=== PATIENT | female | born 1960 ===

== ENCOUNTER 2022-03-23 10:24 | Inpatient (IN) ==
[2022-03-24] MEDS: Magnesium Hydroxide LIQ 30 ML UDC PO PRN (16:15)
[2022-03-24] MEDS: Heparin 5000 UNITS/ML 1 mL VIAL SUBCUT SCH (21:35)
[2022-03-25 07:08] LABS: Hematocrit 27 % (35-47); Red Blood Count 3.83 10^6 /uL (3.70-4.87); White Blood Count 7.2 10^3/uL (3.5-10.8)
[2022-03-25 07:47] LABS: Albumin 3.5 g/dL (3.2-5.2); Albumin/Globulin Ratio 1.5 (1-3); Calcium 9.2 mg/dL (8.6-10.3); Globulin 2.4 g/dL (2-4); Potassium 4.7 mmol/L (3.5-5.0); Total Bilirubin 0.3 mg/dL (0.2-1.0); Total Protein 5.9 g/dL (6.4-8.9); eGFR CKD-EPI 105.1 (>60)
[2022-03-25 08:28] LABS: ABS Lymphocytes 0.5 10^3/ul (1.0-4.8); ABS Monocytes 0.3 10^3/ul (0-0.8); ABS Neutrophils 6.4 10^3/ul (1.5-7.7); Eosinophil % 0.1 %; Lymphocyte % 7.6 %; Mean Corpuscular HGB Conc 33 g/dL (31-36); Mean Corpuscular Hemoglobin 23 pg (27-31); Mean Corpuscular Volume 71 fL (80-97); Mean Platelet Volume 6.1 fL (7.4-10.4); Nucleated Red Blood Cells % 0.1; Platelet Count 298 10^3/uL (150-450); Red Cell Distribution Width 18 % (10-15)
[2022-03-25] MEDS: Multivitamins/Minerals TAB PO SCH (12:50)
[2022-03-25] MEDS: Cholecalciferol (VIT D3) 1,000 unit TAB PO SCH (12:51)
[2022-03-25] MEDS: Heparin 5000 UNITS/ML 1 mL VIAL SUBCUT SCH ×2 (12:52→20:28)
[2022-03-26] MEDS: Cholecalciferol (VIT D3) 1,000 unit TAB PO SCH (10:13)
[2022-03-26] MEDS: Multivitamins/Minerals TAB PO SCH (10:13)
[2022-03-26] MEDS: Heparin 5000 UNITS/ML 1 mL VIAL SUBCUT SCH ×2 (10:13→20:20)
[2022-03-27] MEDS: Heparin 5000 UNITS/ML 1 mL VIAL SUBCUT SCH ×2 (10:18→21:12)
[2022-03-27] MEDS: Multivitamins/Minerals TAB PO SCH (10:18)
[2022-03-27] MEDS: Cholecalciferol (VIT D3) 1,000 unit TAB PO SCH (10:18)
[2022-03-27] MEDS: Magnesium Hydroxide LIQ 30 ML UDC PO PRN (11:13)
[2022-03-28] MEDS: Heparin 5000 UNITS/ML 1 mL VIAL SUBCUT SCH ×2 (08:39→22:16)
[2022-03-28] MEDS: Multivitamins/Minerals TAB PO SCH (08:39)
[2022-03-28] MEDS: Cholecalciferol (VIT D3) 1,000 unit TAB PO SCH (12:07)
[2022-03-29] MEDS: Cholecalciferol (VIT D3) 1,000 unit TAB PO SCH (10:42)
[2022-03-29] MEDS: Multivitamins/Minerals TAB PO SCH (10:45)
[2022-03-29] MEDS: Heparin 5000 UNITS/ML 1 mL VIAL SUBCUT SCH ×2 (10:46→21:46)
[2022-03-30] MEDS: Magnesium Hydroxide LIQ 30 ML UDC PO PRN (05:20)
[2022-03-30] MEDS: Heparin 5000 UNITS/ML 1 mL VIAL SUBCUT SCH ×2 (09:00→23:07)
[2022-03-30] MEDS: Cholecalciferol (VIT D3) 1,000 unit TAB PO SCH (09:00)
[2022-03-30] MEDS: Multivitamins/Minerals TAB PO SCH (09:00)
[2022-03-31 07:40] LABS: ABS Lymphocytes 0.4 10^3/ul (1.0-4.8); ABS Monocytes 0.3 10^3/ul (0-0.8); ABS Neutrophils 4.2 10^3/ul (1.5-7.7); Eosinophil % 0.4 %; Hematocrit 27 % (35-47); Hemoglobin 8.9 g/dL (12.0-16.0); Lymphocyte % 8.5 %; Mean Corpuscular HGB Conc 33 g/dL (31-36); Mean Corpuscular Hemoglobin 24 pg (27-31); Mean Corpuscular Volume 71 fL (80-97); Nucleated Red Blood Cells % 0.1; Platelet Count 250 10^3/uL (150-450); Red Blood Count 3.81 10^6 /uL (3.70-4.87); Red Cell Distribution Width 19 % (10-15)
[2022-03-31 08:30] LABS: Albumin 3.7 g/dL (3.2-5.2); Albumin/Globulin Ratio 1.4 (1-3); Calcium 9.5 mg/dL (8.6-10.3); Globulin 2.6 g/dL (2-4); Total Bilirubin 0.5 mg/dL (0.2-1.0); Total Protein 6.3 g/dL (6.4-8.9); eGFR CKD-EPI 103.8 (>60)
[2022-03-31] MEDS: Senna TAB 8.6 mg TAB PO PRN (08:48)
[2022-03-31] MEDS: Cholecalciferol (VIT D3) 1,000 unit TAB PO SCH (08:52)
[2022-03-31] MEDS: Heparin 5000 UNITS/ML 1 mL VIAL SUBCUT SCH ×2 (08:53→20:08)
[2022-03-31] MEDS: Multivitamins/Minerals TAB PO SCH (08:53)
[2022-03-31] MEDS: Magnesium Hydroxide LIQ 30 ML UDC PO PRN (15:03)
[2022-03-31] MEDS ORDERED: Morphine ORAL.SOLN 10 mg 2 mg/ml UDC 5 ml (10 mg) PO PRN (18:47)
[2022-04-01] MEDS: Heparin 5000 UNITS/ML 1 mL VIAL SUBCUT SCH ×2 (11:11→21:02)
[2022-04-01] MEDS: Cholecalciferol (VIT D3) 1,000 unit TAB PO SCH (11:11)
[2022-04-01] MEDS: Multivitamins/Minerals TAB PO SCH (11:12)
[2022-04-01] MEDS ORDERED: Morphine ORAL.SOLN 10 mg 2 mg/ml UDC 5 ml (10 mg) PO PRN (11:49)
[2022-04-02] MEDS: Cholecalciferol (VIT D3) 1,000 unit TAB PO SCH (11:10)
[2022-04-02] MEDS: Heparin 5000 UNITS/ML 1 mL VIAL SUBCUT SCH ×2 (11:10→21:35)
[2022-04-02] MEDS: Multivitamins/Minerals TAB PO SCH (11:10)
[2022-04-03] MEDS: Heparin 5000 UNITS/ML 1 mL VIAL SUBCUT SCH ×2 (09:00→21:00)
[2022-04-03] MEDS: Cholecalciferol (VIT D3) 1,000 unit TAB PO SCH (19:12)
[2022-04-03] MEDS: Multivitamins/Minerals TAB PO SCH (19:12)
[2022-04-03] MEDS: Magnesium Hydroxide LIQ 30 ML UDC PO PRN (22:35)
[2022-04-04] MEDS: Cholecalciferol (VIT D3) 1,000 unit TAB PO SCH (07:26)
[2022-04-04] MEDS: Multivitamins/Minerals TAB PO SCH (09:48)
[2022-04-04] MEDS: Heparin 5000 UNITS/ML 1 mL VIAL SUBCUT SCH ×2 (09:48→21:15)
[2022-04-05] MEDS: Cholecalciferol (VIT D3) 1,000 unit TAB PO SCH (08:47)
[2022-04-05] MEDS: Senna TAB 8.6 mg TAB PO PRN (08:47)
[2022-04-05] MEDS: Heparin 5000 UNITS/ML 1 mL VIAL SUBCUT SCH ×2 (11:42→21:28)
[2022-04-05] MEDS: Multivitamins/Minerals TAB PO SCH (11:42)
[2022-04-05] MEDS: Magnesium Hydroxide LIQ 30 ML UDC PO PRN (15:54)
[2022-04-05] MEDS: oxyCODONE SR 15 mg TAB PO SCH (21:27)
[2022-04-06] MEDS: Senna TAB 8.6 mg TAB PO PRN (10:29)
[2022-04-06] MEDS: Multivitamins/Minerals TAB PO SCH (10:29)
[2022-04-06] MEDS: Cholecalciferol (VIT D3) 1,000 unit TAB PO SCH (10:32)
[2022-04-06] MEDS: Heparin 5000 UNITS/ML 1 mL VIAL SUBCUT SCH ×2 (10:33→21:54)
[2022-04-06] MEDS: oxyCODONE SR 15 mg TAB PO SCH ×2 (10:33→21:55)
[2022-04-06] MEDS: Magnesium Hydroxide LIQ 30 ML UDC PO PRN (14:46)
[2022-04-07] MEDS: Heparin 5000 UNITS/ML 1 mL VIAL SUBCUT SCH ×2 (09:15→21:42)
[2022-04-07 10:43] LABS: ABS Lymphocytes 0.3 10^3/ul (1.0-4.8); ABS Monocytes 0.3 10^3/ul (0-0.8); ABS Neutrophils 2.4 10^3/ul (1.5-7.7); Eosinophil % 0.7 %; Hematocrit 25 % (35-47); Hemoglobin 8.1 g/dL (12.0-16.0); Lymphocyte % 11.3 %; Mean Corpuscular HGB Conc 33 g/dL (31-36); Mean Corpuscular Hemoglobin 23 pg (27-31); Mean Corpuscular Volume 70 fL (80-97); Mean Platelet Volume 5.9 fL (7.4-10.4); Platelet Count 210 10^3/uL (150-450); Red Cell Distribution Width 19 % (10-15); White Blood Count 3.1 10^3/uL (3.5-10.8)
[2022-04-07 11:10] LABS: Albumin 3.5 g/dL (3.2-5.2); Albumin/Globulin Ratio 1.3 (1-3); Calcium 8.9 mg/dL (8.6-10.3); Globulin 2.6 g/dL (2-4); Total Bilirubin 0.3 mg/dL (0.2-1.0); Total Protein 6.1 g/dL (6.4-8.9); eGFR CKD-EPI 99.6 (>60)
[2022-04-07 12:37] LABS: Corrected Retic Count 1.1 % (0.5-1.5); Hematocrit for Retic CNT 25 % (35-47); Immature Retic Fraction 0.47; RBC Retic Count 3.49 10^6/uL (3.70-4.87)
[2022-04-07 13:03] LABS: Ferritin 42.6 ng/mL (11-307)
[2022-04-07 13:06] LABS: Folate 9.67 ng/mL (5.90-24.80)
[2022-04-07] MEDS: Cholecalciferol (VIT D3) 1,000 unit TAB PO SCH (13:21)
[2022-04-07] MEDS: Multivitamins/Minerals TAB PO SCH (13:21)
[2022-04-07] MEDS: Senna TAB 8.6 mg TAB PO PRN (14:27)
[2022-04-07] MEDS ORDERED: Lactulose 30 ml UDC PO ONE (17:00)
[2022-04-08] MEDS: Cholecalciferol (VIT D3) 1,000 unit TAB PO SCH (08:03)
[2022-04-08] MEDS: Multivitamins/Minerals TAB PO SCH (08:07)
[2022-04-08] MEDS: Heparin 5000 UNITS/ML 1 mL VIAL SUBCUT SCH ×2 (08:07→21:09)
[2022-04-09] MEDS: Senna TAB 8.6 mg TAB PO PRN (08:48)
[2022-04-09] MEDS: Heparin 5000 UNITS/ML 1 mL VIAL SUBCUT SCH ×2 (09:27→20:07)
[2022-04-09] MEDS: Multivitamins/Minerals TAB PO SCH (09:27)
[2022-04-09] MEDS: Magnesium Hydroxide LIQ 30 ML UDC PO PRN (09:35)
[2022-04-09] MEDS: Cholecalciferol (VIT D3) 1,000 unit TAB PO SCH (15:25)
[2022-04-10 06:32] LABS: ABS Lymphocytes 0.4 10^3/ul (1.0-4.8); ABS Monocytes 0.3 10^3/ul (0-0.8); ABS Neutrophils 2.1 10^3/ul (1.5-7.7); Eosinophil % 0.9 %; Hematocrit 24 % (35-47); Hemoglobin 7.8 g/dL (12.0-16.0); Mean Corpuscular HGB Conc 33 g/dL (31-36); Mean Corpuscular Hemoglobin 23 pg (27-31); Mean Corpuscular Volume 70 fL (80-97); Mean Platelet Volume 5.8 fL (7.4-10.4); Platelet Count 192 10^3/uL (150-450); Red Blood Count 3.39 10^6 /uL (3.70-4.87); Red Cell Distribution Width 18 % (10-15); White Blood Count 2.8 10^3/uL (3.5-10.8)
[2022-04-10] MEDS: Cholecalciferol (VIT D3) 1,000 unit TAB PO SCH (14:27)
[2022-04-10] MEDS: Multivitamins/Minerals TAB PO SCH (14:28)
[2022-04-10] MEDS: Heparin 5000 UNITS/ML 1 mL VIAL SUBCUT SCH ×2 (14:28→21:01)
[2022-04-11] MEDS: Cholecalciferol (VIT D3) 1,000 unit TAB PO SCH (07:37)
[2022-04-11] MEDS ORDERED: oxyCODONE/Acetamin 5/325 mg TAB PO ONE (07:45)
[2022-04-11] MEDS: Heparin 5000 UNITS/ML 1 mL VIAL SUBCUT SCH ×2 (14:41→21:22)
[2022-04-11] MEDS: Multivitamins/Minerals TAB PO SCH (14:41)
[2022-04-11] MEDS: oxyCODONE/Acetamin 5/325 mg TAB PO SCH (22:16)
[2022-04-12 07:35] LABS: ABS Lymphocytes 0.4 10^3/ul (1.0-4.8); ABS Monocytes 0.3 10^3/ul (0-0.8); ABS Neutrophils 1.9 10^3/ul (1.5-7.7); Eosinophil % 1.1 %; Hematocrit 24 % (35-47); Hemoglobin 7.9 g/dL (12.0-16.0); Lymphocyte % 16.9 %; Mean Corpuscular HGB Conc 33 g/dL (31-36); Mean Corpuscular Hemoglobin 23 pg (27-31); Mean Corpuscular Volume 70 fL (80-97); Mean Platelet Volume 6.2 fL (7.4-10.4); Platelet Count 206 10^3/uL (150-450); Red Blood Count 3.39 10^6 /uL (3.70-4.87); Red Cell Distribution Width 18 % (10-15); White Blood Count 2.6 10^3/uL (3.5-10.8)
[2022-04-12] MEDS: Heparin 5000 UNITS/ML 1 mL VIAL SUBCUT SCH ×2 (09:10→23:27)
[2022-04-12] MEDS: Cholecalciferol (VIT D3) 1,000 unit TAB PO SCH (09:10)
[2022-04-12] MEDS: Multivitamins/Minerals TAB PO SCH (09:11)
[2022-04-12] MEDS: Senna TAB 8.6 mg TAB PO PRN (15:11)
[2022-04-12] MEDS: oxyCODONE/Acetamin 5/325 mg TAB PO SCH ×2 (15:57→23:29)
[2022-04-12] MEDS ORDERED: oxyCODONE/Acetamin 5/325 mg TAB PO PRN (21:03)
[2022-04-13] MEDS: oxyCODONE/Acetamin 5/325 mg TAB PO PRN ×4 (00:44→22:57)
[2022-04-13] MEDS: Cholecalciferol (VIT D3) 1,000 unit TAB PO SCH (09:05)
[2022-04-13] MEDS: Heparin 5000 UNITS/ML 1 mL VIAL SUBCUT SCH ×2 (14:40→21:39)
[2022-04-13] MEDS: Multivitamins/Minerals TAB PO SCH (14:41)
[2022-04-14] MEDS: Senna TAB 8.6 mg TAB PO PRN (00:21)
[2022-04-14] MEDS: oxyCODONE/Acetamin 5/325 mg TAB PO PRN ×2 (04:41→12:36)
[2022-04-14 06:33] LABS: ABS Lymphocytes 0.4 10^3/ul (1.0-4.8); ABS Monocytes 0.3 10^3/ul (0-0.8); ABS Neutrophils 1.7 10^3/ul (1.5-7.7); Eosinophil % 1.3 %; Hematocrit 24 % (35-47); Hemoglobin 7.6 g/dL (12.0-16.0); Lymphocyte % 17.5 %; Mean Corpuscular HGB Conc 32 g/dL (31-36); Mean Corpuscular Hemoglobin 23 pg (27-31); Mean Corpuscular Volume 70 fL (80-97); Mean Platelet Volume 6.1 fL (7.4-10.4); Platelet Count 196 10^3/uL (150-450); Red Cell Distribution Width 18 % (10-15); White Blood Count 2.5 10^3/uL (3.5-10.8)
[2022-04-14 07:13] LABS: Albumin 3.2 g/dL (3.2-5.2); Albumin/Globulin Ratio 1.4 (1-3); Calcium 8.9 mg/dL (8.6-10.3); Globulin 2.3 g/dL (2-4); Potassium 4.1 mmol/L (3.5-5.0); Total Bilirubin 0.3 mg/dL (0.2-1.0); Total Protein 5.5 g/dL (6.4-8.9); eGFR CKD-EPI 103.8 (>60)
[2022-04-14] MEDS: Cholecalciferol (VIT D3) 1,000 unit TAB PO SCH (09:11)
[2022-04-14] MEDS: Heparin 5000 UNITS/ML 1 mL VIAL SUBCUT SCH ×2 (12:40→23:00)
[2022-04-14] MEDS: Multivitamins/Minerals TAB PO SCH (12:40)
[2022-04-14] MEDS ORDERED: oxyCODONE/Acetamin 5/325 mg TAB PO SCH (21:00)
[2022-04-15] MEDS: Senna TAB 8.6 mg TAB PO PRN (08:44)
[2022-04-15] MEDS: Heparin 5000 UNITS/ML 1 mL VIAL SUBCUT SCH ×2 (09:09→21:34)
[2022-04-15] MEDS: Multivitamins/Minerals TAB PO SCH (09:10)
[2022-04-15] MEDS: Cholecalciferol (VIT D3) 1,000 unit TAB PO SCH (10:59)
[2022-04-15] MEDS: Magnesium Hydroxide LIQ 30 ML UDC PO PRN (15:21)
[2022-04-15] MEDS: oxyCODONE/Acetamin 5/325 mg TAB PO SCH ×2 (22:52→23:08)
[2022-04-16] MEDS: Cholecalciferol (VIT D3) 1,000 unit TAB PO SCH (09:44)
[2022-04-16] MEDS: Heparin 5000 UNITS/ML 1 mL VIAL SUBCUT SCH ×2 (09:45→20:23)
[2022-04-16] MEDS: Multivitamins/Minerals TAB PO SCH (09:46)
[2022-04-16] MEDS: Senna TAB 8.6 mg TAB PO PRN (09:48)
[2022-04-16] MEDS ORDERED: Lactulose 30 ml UDC PO ONE (18:00)
[2022-04-16] MEDS: oxyCODONE/Acetamin 5/325 mg TAB PO SCH (21:46)
[2022-04-17 06:52] LABS: ABS Lymphocytes 0.5 10^3/ul (1.0-4.8); ABS Monocytes 0.3 10^3/ul (0-0.8); ABS Neutrophils 2.5 10^3/ul (1.5-7.7); Eosinophil % 0.4 %; Hematocrit 26 % (35-47); Hemoglobin 8.8 g/dL (12.0-16.0); Lymphocyte % 15.4 %; Mean Corpuscular HGB Conc 33 g/dL (31-36); Mean Corpuscular Hemoglobin 23 pg (27-31); Mean Corpuscular Volume 69 fL (80-97); Mean Platelet Volume 6.2 fL (7.4-10.4); Platelet Count 233 10^3/uL (150-450); Red Blood Count 3.81 10^6 /uL (3.70-4.87); Red Cell Distribution Width 18 % (10-15); White Blood Count 3.3 10^3/uL (3.5-10.8)
[2022-04-17 06:53] LABS: Anisocytosis 1+; Microcytosis 3+
[2022-04-17] MEDS: Cholecalciferol (VIT D3) 1,000 unit TAB PO SCH (09:35)
[2022-04-17] MEDS ORDERED: oxyCODONE/Acetamin 5/325 mg TAB PO ONE ×2 (11:45→16:59)
[2022-04-17] MEDS: Heparin 5000 UNITS/ML 1 mL VIAL SUBCUT SCH ×2 (13:25→22:07)
[2022-04-17] MEDS: Multivitamins/Minerals TAB PO SCH (13:25)
[2022-04-17] MEDS: Iron Sucrose 200 MG in NS 0.9% 100 ml BAG 100 ML IVPB SCH (18:10)
[2022-04-17] MEDS: oxyCODONE/Acetamin 5/325 mg TAB PO SCH (22:32)
[2022-04-18] MEDS: Cholecalciferol (VIT D3) 1,000 unit TAB PO SCH (08:25)
[2022-04-18] MEDS: Heparin 5000 UNITS/ML 1 mL VIAL SUBCUT SCH ×2 (08:27→21:25)
[2022-04-18] MEDS: Multivitamins/Minerals TAB PO SCH (08:28)
[2022-04-18] MEDS: Senna TAB 8.6 mg TAB PO PRN (13:13)
[2022-04-18] MEDS: oxyCODONE/Acetamin 5/325 mg TAB PO SCH ×2 (16:44→21:26)
[2022-04-18] MEDS ORDERED: oxyCODONE/Acetamin 5/325 mg TAB PO ONE (16:50)
[2022-04-18 16:54] VITALS: BP 154/84
[2022-04-19] MEDS: Cholecalciferol (VIT D3) 1,000 unit TAB PO SCH (08:08)
[2022-04-19] MEDS: Heparin 5000 UNITS/ML 1 mL VIAL SUBCUT SCH (08:11)
[2022-04-19] MEDS: Multivitamins/Minerals TAB PO SCH (08:12)
[2022-04-19] MEDS: Iron Sucrose 200 MG in NS 0.9% 100 ml BAG 100 ML IVPB SCH ×2 (12:34→13:26)
[2022-04-19 13:46] LABS: ABS Lymphocytes 0.6 10^3/ul (1.0-4.8); ABS Monocytes 0.3 10^3/ul (0-0.8); ABS Neutrophils 3.5 10^3/ul (1.5-7.7); Eosinophil % 0.4 %; Hematocrit 27 % (35-47); Hemoglobin 8.7 g/dL (12.0-16.0); Lymphocyte % 12.9 %; Mean Corpuscular HGB Conc 33 g/dL (31-36); Mean Corpuscular Hemoglobin 23 pg (27-31); Mean Corpuscular Volume 70 fL (80-97); Mean Platelet Volume 5.9 fL (7.4-10.4); Platelet Count 235 10^3/uL (150-450); Red Cell Distribution Width 19 % (10-15); White Blood Count 4.4 10^3/uL (3.5-10.8)
[2022-04-19] MEDS: oxyCODONE/Acetamin 5/325 mg TAB PO SCH (17:32)
== END 2022-04-19 18:30 | disposition home health service (06) | DRG 560 ==
LOC: PMRU 03-24 11:21
PROVIDERS: ADMIT Physical Medicine & Rehabilitation; ATTEND Physical Medicine & Rehabilitation